=== PATIENT | female | born 1950 | race Two or more races ===

== ENCOUNTER 2018-12-14 05:47 | Day surgery (SDC) | payer OTHER ==
[~2018-12-14 05:47] MED LIST: ARTHRITIS PAIN650 M1 PO; PREVACID30 M1 PO; TOPROL XL25 M1 PO; ZYRTEC10 M3 PO
[2018-12-14] MEDS ORDERED: MACROBID 100 M100 MG PO (10:45)
[2018-12-14] MEDS ORDERED: ACETAMINOPHEN-1 EAC2 PO (10:46)
== END 2018-12-14 15:55 | disposition home or self-care (01) ==
LOC: CIR.AMB 05:47
DX: N81.3 Complete uterovaginal prolapse (principal)